=== PATIENT | female | born 1975 | race American Indian/Alaskan Native ===

== ENCOUNTER 2019-05-27 08:45 | Outpatient (CLI) | payer MEDICARE ==
--- NOTE | 2019-05-27 10:45 | Mammography Report ---
RIGHT DIGITAL DIAGNOSTIC MAMMOGRAM WITH CAD -- 05/27/2019 RIGHT LIMITED BREAST ULTRASOUND INDICATION: Follow-up asymmetries. ABNORMAL MAMMOGRAM TECHNIQUE: Digital right mammographic imaging was performed. Magnification views were obtained. Limi shayna ultrasound was performed. This examination was interpreted with the benefit of Computer-Aided Det ection (CAD) analysis. COMPARISON: 11/18/2018 [facility] FINDINGS: Breast Density: The breast is mostly fatty. MAMMOGRAPHIC FINDINGS: 2 stable oval circumscribed upper outer quadrant 5 mm nodules. Both contain fa t. ULTRASOUND FINDINGS: Targeted ultrasound evaluation was performed of the area of interest. Ultrasou nd of the upper outer quadrant of the right breast demonstrated no mass, cyst or shadowing to correla te with the mammographic densities. IMPRESSION: Benign 5 mm lymph nodes of the upper outer right breast. These lymph nodes are not identi fied by ultrasound but there are no suspicious findings by ultrasound. Follow up recommendation: Routine yearly BI-RADS Category 2: Benign. A "normal" or negative report should not discourage follow up or biopsy of a clinically significant f inding. A written summary of these findings will be mailed to the patient. The patient will be entered into a mammography reporting system which will generate a reminder letter for the patient's next appointmen t at the appropriate interval. According to the [employer], yearly mammograms are recommended starting at age 40 and continuing as long as a woman is in good health. Breast MRI is recommended for women with an nancy roximately 20-25% or greater lifetime risk of breast cancer, including women with a strong family his tory of breast or ovarian cancer and women who have been treated for Hodgkin's disease. Signer Name: Jonh Edwards MD Signed: 05/27/2019 10:40 AM Workstation Name: [id number]
== END 2019-05-27 08:46 | disposition home or self-care (01) ==
LOC: SPVWC 08:45
PROVIDERS: ATTEND Surgery
DX: R92.8 Other abnormal and inconclusive findings on diagnostic imaging of breast (principal)